=== PATIENT | male | born 1965 | race Asian ===

== ENCOUNTER 2019-03-13 11:12 | Emergency (ER) | payer OTHER, BC ==
[~2019-03-13] VITALS: Ht 165.1 cm; Wt 76.2 kg
[2019-03-13 11:24] VITALS: Ht 165.1 cm; Wt 76.2 kg
[2019-03-13 15:13] VITALS: BP 133/72
== END 2019-03-13 15:13 | disposition home or self-care (01) ==
LOC: ED 11:12
DX: M71.22 Synovial cyst of popliteal space [Baker], left knee (principal)
CPT/HCPCS: J1885; Q0092